=== PATIENT | female | born 1995 | race Caucasian/White ===

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

== ENCOUNTER 2017-01-25 22:14 | Emergency (ER) | payer OTHER ==
[2017-01-25 22:51] LABS: URINE SOURCE CLEAN CATCH
[2017-01-25 22:54] LABS: URINE APPEARANCE SL CLOUDY; URINE BILIRUBIN NEG (NEG); URINE BLOOD 3+ (NEG); URINE COLOR RED; URINE GLUCOSE NEG (NORM); URINE KETONE NEG (NEG); URINE LEUKOCYTE ESTERASE TRACE (NEG); URINE NITRATE NEG (NEG); URINE PROTEIN 1+ (NEG)
[2017-01-25 23:01] LABS: MICRO INDICATED? YES
[2017-01-25 23:07] LABS: CULTURE INDICATED? YES; URINE BACTERIA NEG (NEG); URINE RBC INNUM /[HPF] (0-2)
[2017-01-25 23:08] LABS: URINE MUCUS PRESENT; URINE SQUAMOUS EPITHELIAL CELL MODERATE /[HPF]
[2017-01-26] MEDS ORDERED: VOLTAREN75 MG PO (00:46)
[2017-01-26] MEDS ORDERED: PHENERGAN25 M1 DOB (00:47)
== END 2017-01-26 00:48 | disposition home or self-care (01) ==
LOC: SED 22:14
PROVIDERS: Emergency Medicine
DX: N94.6 Dysmenorrhea, unspecified (principal); J45.909 Unspecified asthma, uncomplicated; K21.9 Gastro-esophageal reflux disease without esophagitis
CPT/HCPCS: 81003; 84703; 87086; 96361; 96374; 96375; 99284; J1885; J2270

== ENCOUNTER 2017-02-02 09:01 | Emergency (ER) | payer OTHER ==
--- NOTE | ~2017-02-02 | CT71 ---
[facility] A Service [facility] RADIOLOGY TEXT RESULTS PATIENT: MARIBELL AVILES LOCATION: SED : [birth year] UNIT #: [id number] AGE: [address]: Hayley Mitchell MD SEX: F ORDER DR: [id number] [place] [id number] E MR#: [id number] Acc #: [id number] NAME: MARIBELL AVILES : 1995 SEX: F STUDY DATE/TIME: 02/02/2017 9:31 UNIT: SED ROOM: STUDY DESCRIPTION: CT Head Wo Contrast Attending Physician: Hayley Mitchell M.D. Ordering Physician: Hayley Mitchell M.D. Primary Care Physician: [facility] [place] MEDICAL IMAGING REPORT This report is preliminary unless electronic signature is present. EXAM Head CT 02/02/2017 INDICATION Headaches for the last 2 weeks. No trauma. COMPARISON None. TECHNIQUE This CT examination was performed with one or more of the following radiation dose reduction techniques: automatic exposure control, adjustment of mA and/or kV according to patient size, and iterative reconstruction. FINDINGS Axial noncontrast images were obtained from the skull base to the vertex. Ventricular size and configuration are normal. There is no evidence of acute infarct or hemorrhage. There are no extraaxial fluid collections. No mass lesion or mass effect is seen. There are no skull fractures. IMPRESSION Normal noncontrast head CT. Dictated by... Ray Cadet Jr., M.D. THIS IS AN ELECTRONICALLY VERIFIED REPORT Ray Cadet Jr., M.D. at 02/02/2017 12:41 PM ROSENDOK/lala [facility] A Service [facility] RADIOLOGY TEXT RESULTS PATIENT: MARIBELL AVILES LOCATION: SED : [birth year] UNIT #: [id number] AGE: [address]: Hayley Mitchell MD SEX: F ORDER DR: TD: 02/02/2017 12:01 JOB #: [id number] MEDICAL IMAGING REPORT Page 1 of 1
[~2017-02-02 09:01] MED LIST changes: +PHENERGAN25 M1 DOB; +VOLTAREN75 MG PO
== END 2017-02-02 10:48 | disposition home or self-care (01) ==
LOC: SED 09:01
DX: R51 Headache (principal); J45.909 Unspecified asthma, uncomplicated; K21.9 Gastro-esophageal reflux disease without esophagitis; Z79.899 Other long term (current) drug therapy
CPT/HCPCS: 70450; 99284

== ENCOUNTER 2017-02-18 23:41 | Emergency (ER) | payer OTHER ==
[2017-02-18] MEDS ORDERED: VOLTAREN50 MG (23:52)
[2017-02-19 00:40] LABS: URINE APPEARANCE HAZY; URINE BILIRUBIN NEG (NEG); URINE BLOOD NEG (NEG); URINE COLOR YELLOW; URINE GLUCOSE NEG (NORM); URINE KETONE 1+ (NEG); URINE LEUKOCYTE ESTERASE 1+ (NEG); URINE NITRATE NEG (NEG); URINE PH 7.5 (5-8); URINE PROTEIN TRACE (NEG); URINE UROBILINOGEN 0.2 MG/DL (NORM)
[2017-02-19 00:42] LABS: MICRO INDICATED? YES; URINE SOURCE CLEAN CATCH
[2017-02-19 00:44] LABS: CULTURE INDICATED? YES; URINE AMORPHOUS SEDIMENT AMORP URATES; URINE BACTERIA 2+ (NEG); URINE MUCUS PRESENT; URINE SQUAMOUS EPITHELIAL CELL OCCAS /[HPF]
== END 2017-02-19 02:50 | disposition home or self-care (01) ==
LOC: SED 23:41
PROVIDERS: Emergency Medicine
DX: R51 Headache (principal); B35.9 Dermatophytosis, unspecified
CPT/HCPCS: 36415; 81003; 84703; 87086; 87651; 96361; 96374; 96375; 96376; 99284; J1200; J1885; J2405